=== PATIENT | male | born 1965 | race Caucasian/White ===

== ENCOUNTER 2020-03-14 17:19 | Emergency (ER) | payer OTHER ==
[~2020-03-14] VITALS: Ht 182.8 cm; Wt 111.1 kg
[~2020-03-14 17:19] MED LIST: DAYPRO600 M1 PO; EC NAPROSYN500 MG PO; EFFEXOR XR150 M1 PO; FLONASE ALLERG9.9 ML NAS; HYDROCODONE BIT1 T11 PO; MOTRIN600 MG PO; NABUMETONE500 M1 PO; NAPROSYN500 MG PO; NORCO 325 MG-51 TAB PO; PREDNICOT20 MG PO; PREDNISONE10 MG PO; ROBITUSSIN AC 110 ML PO; XANAX0.25 MG PO
[2020-03-14] MEDS ORDERED: AMOXICILLIN500 M3 PO (18:31)
== END 2020-03-14 19:04 | disposition home or self-care (01) ==
LOC: ED 17:19
DX: J02.9 Acute pharyngitis, unspecified (principal); Z79.899 Other long term (current) drug therapy